=== PATIENT | female | born 1960 | race Caucasian/White ===

== ENCOUNTER 2020-08-09 13:20 | Outpatient (RCR) | payer BC, MEDICAID, SELFPAY | END 2020-08-25 23:59 | LOC: NS 13:20 | PROVIDERS: Visit Provider Physician Assistant Surgical | DX: Z71.3 Dietary counseling and surveillance (principal); E66.01 Morbid (severe) obesity due to excess calories; Z68.42 Body mass index [BMI] 45.0-49.9, adult | CPT/HCPCS: 97802 ==

== ENCOUNTER 2020-09-06 13:58 | Outpatient (RCR) | payer MEDICAID, SELFPAY | END 2020-09-06 23:59 | disposition home or self-care (01) | LOC: NS 13:58 | PROVIDERS: Visit Provider Physician Assistant Surgical | DX: Z71.3 Dietary counseling and surveillance (principal); E66.01 Morbid (severe) obesity due to excess calories; Z68.42 Body mass index [BMI] 45.0-49.9, adult | CPT/HCPCS: 97803 ==

== ENCOUNTER → 2024-05-06 | Outpatient (CLI) | payer OTHER, SELFPAY ==
--- NOTE | 2024-05-06 16:46 | CT_ITS ---
PROCEDURE: CT chest without IV contrast REASON FOR EXAM: LUNG NODULES TECHNIQUE: Multiple contiguous axial images of the chest were obtained without the administration of intravenous contrast. Two-dimensional coronal and sagittal reformatted images were reconstructed. Low-dose imaging technique was utilized. COMPARISON: None. FINDINGS: Heart size is within normal limits. No significant pericardial effusion or coronary artery calcifications. Normal caliber thoracic aorta and pulmonary arteries. No bulky adenopathy. Small hiatal hernia. Status post gastric bypass. Superficial soft tissues are within normal limits. Central airways are patent. No acute infiltrates, pleural effusion or pneumothorax. No suspicious pulmonary nodule or mass. No acute osseous abnormality. Degenerative changes of the spine. CT/Chest without Contrast IMPRESSION: No acute process or concerning pulmonary nodule/mass. One or more dose reduction techniques were used (e.g., Automated exposure contr ol, adjustment of the mA and/or kV according to patient size, use of iterative reconstruction technique). Reading Location: [facility]
== END | disposition home or self-care (01) ==
PROVIDERS: PCP Family Medicine
DX: R91.8 Other nonspecific abnormal finding of lung field (principal)
CPT/HCPCS: 71250